=== PATIENT | female | born 1940 | race Caucasian/White ===

== ENCOUNTER → 2017-05-03 | Outpatient (CLI) | payer MEDICARE, BC ==
[~2017-05-03] MED LIST: ANTIVERT 25MG25 MG PO; ATIVAN0.5 MG PO; CALCIUM 600 + V1 TA1 PO; FLAX OIL1000 MG PO; FLONASE NASAL S16 GM NS; LUTEIN6 MG PO; MULTI VITAMINS1 TAB PO; PHENERGAN 25 TA25 MG PO; PRIL40 PO
== END ==
LOC: MC.RAD 10:00
DX: Z12.31 Encounter for screening mammogram for malignant neoplasm of breast (principal)

== ENCOUNTER → 2018-05-24 | Outpatient (CLI) | payer MEDICARE, BC | LOC: MC.RAD 08:56 | DX: Z12.31 Encounter for screening mammogram for malignant neoplasm of breast (principal) ==

== ENCOUNTER 2018-07-15 13:28 | Emergency (ER) | payer MEDICARE, BC ==
[2018-07-15 13:37] VITALS: TEMP 98
[2018-07-15 13:55] LABS: BASO # 0.1 (0.0-0.2); BASO % 0.8 % (0.0-2.0); EOS # 0.1 (0.0-0.7); EOS % 0.7 % (0-4.0); GRAN # 4.6 (1.4-6.5); GRAN % 63.9 % (42.2-75.2); HEMOGLOBIN 14.7 g/dl (12.5-16.0); LYMPH % 28.5 % (20.0-51.0); MEAN CELL VOLUME 93 fl (80.0-100.0); MEAN CORPUSCULAR HEMOGLOBIN 31 pg (27.0-31.0); MEAN CORPUSCULAR HGB CONC 33 g/dl (33.0-37.0); MEAN PLATELET VOLUME 10.5 fl (7.4-10.4); MONO # 0.4 (0.1-0.6); PLATELET COUNT 303 K/mm3 (130-400); RED BLOOD COUNT 4.75 M/mm3 (4.10-5.30)
[2018-07-15 14:03] LABS: ALANINE AMINOTRANSFERASE 17 U/L (9-52); ALBUMIN 4.7 gm/dL (3.5-5.0); ALKALINE PHOSPHATASE 101 U/L (50-136); ANION GAP 8 mmol/L (7-16); AST,SGOT 26 U/L (15-37); BILIRUBIN,TOTAL 0.5 mg/dL (0.0-1.0); BLOOD UREA NITROGEN 10 mg/dL (7-17); CALCIUM 9.8 mg/dL (8.4-10.2); CARBON DIOXIDE 27 mmol/L (22-30); CHLORIDE 106 mmol/L (98-107); CREATINE KINASE 59 U/L (30-135); GLUCOSE 115 mg/dL (74-106); LIPASE 123 U/L (23-300); POTASSIUM 3.8 mmol/L (3.4-5.0); SODIUM 141 mmol/L (137-145); TOTAL PROTEIN 7.7 gm/dL (6.4-8.2)
[2018-07-15 14:07] LABS: PROTHROMBIN TIME 11.9 SECONDS (9.7-12.8)
[2018-07-15 14:10] LABS: PARTIAL THROMBOPLASTIN TIME 39.5 SECONDS (26.0-37.0)
[2018-07-15 14:14] LABS: TROPONIN-I < 0.012 ng/mL (0.000-0.034)
[2018-07-15 16:18] VITALS: BP 133/71; PULSE 70
== END 2018-07-15 16:18 | disposition home or self-care (01) ==
LOC: COL.ER 13:28
PROVIDERS: Emergency Medicine
DX: K21.9 Gastro-esophageal reflux disease without esophagitis (principal); Z90.710 Acquired absence of both cervix and uterus

== ENCOUNTER 2018-08-21 17:18 | Emergency (ER) | payer MEDICARE, BC ==
[~2018-08-21] VITALS: Ht 170.2 cm; Wt 60.9 kg
[2018-08-21 17:24] VITALS: BP 180/77; TEMP 99.2
[2018-08-21 18:17] LABS: BASO % 0.4 % (0.0-2.0); EOS # 0.1 (0.0-0.7); EOS % 1.6 % (0-4.0); GRAN # 4.3 (1.4-6.5); GRAN % 62.7 % (42.2-75.2); HEMATOCRIT 42.1 % (37.0-47.0); HEMOGLOBIN 13.6 g/dl (12.5-16.0); LYMPH # 1.8 (1.2-3.4); LYMPH % 26.3 % (20.0-51.0); MEAN CELL VOLUME 95 fl (80.0-100.0); MEAN CORPUSCULAR HEMOGLOBIN 31 pg (27.0-31.0); MEAN CORPUSCULAR HGB CONC 32 g/dl (33.0-37.0); MEAN PLATELET VOLUME 10.2 fl (7.4-10.4); MONO # 0.6 (0.1-0.6); MONO % 8.7 % (1.7-9.3); PLATELET COUNT 295 K/mm3 (130-400); RED BLOOD COUNT 4.44 M/mm3 (4.10-5.30)
[2018-08-21 18:29] LABS: ALBUMIN 4.3 gm/dL (3.5-5.0); BILIRUBIN,TOTAL 0.2 mg/dL (0.0-1.0); CALCIUM 9.3 mg/dL (8.4-10.2); CREATININE, serum 0.77 mg/dL (0.52-1.25); POTASSIUM 3.4 mmol/L (3.4-5.0); TOTAL PROTEIN 7.3 gm/dL (6.4-8.2)
[2018-08-21] MEDS ORDERED: TESSALON P100 MG/CAP PO (19:21)
[2018-08-21 19:30] VITALS: PULSE 75
== END 2018-08-21 19:30 | disposition home or self-care (01) ==
LOC: COL.ER 17:18
PROVIDERS: Family Medicine
DX: R05 Cough (principal)
CPT/HCPCS: Q9967

== ENCOUNTER 2018-08-29 14:52 | Outpatient (RCR) | payer MEDICARE, BC ==
[~2018-08-29 14:52] MED LIST changes: +TESSALON P100 MG/CAP PO
== END 2018-11-27 | disposition home or self-care (01) ==
LOC: WSST
DX: K21.9 Gastro-esophageal reflux disease without esophagitis (principal); R05 Cough; K21.0 Gastro-esophageal reflux disease with esophagitis; R13.14 Dysphagia, pharyngoesophageal phase; J38.3 Other diseases of vocal cords; Z87.19 Personal history of other diseases of the digestive system

== ENCOUNTER → 2018-09-06 | Outpatient (CLI) | payer MEDICARE, BC | LOC: COL.RAD 09:25 | DX: K21.9 Gastro-esophageal reflux disease without esophagitis (principal); Z87.19 Personal history of other diseases of the digestive system ==

== ENCOUNTER → 2018-09-14 | Outpatient (CLI) | payer MEDICARE, BC | LOC: COL.RAD 12:47 | DX: D49.7 Neoplasm of unspecified behavior of endocrine glands and other parts of nervous system (principal); H61.892 Other specified disorders of left external ear; G31.9 Degenerative disease of nervous system, unspecified; I67.82 Cerebral ischemia | CPT/HCPCS: A9585 ==

== ENCOUNTER → 2019-06-13 | Outpatient (CLI) | payer MEDICARE, BC | LOC: MC.RAD 10:23 | DX: Z12.31 Encounter for screening mammogram for malignant neoplasm of breast (principal) ==

== ENCOUNTER → 2020-06-18 | Outpatient (CLI) | payer MEDICARE, BC | LOC: MC.RAD 09:39 | DX: Z12.31 Encounter for screening mammogram for malignant neoplasm of breast (principal) ==

== ENCOUNTER → 2021-07-01 | Outpatient (CLI) | payer MEDICARE, BC | LOC: MC.RAD 09:55 | DX: Z12.31 Encounter for screening mammogram for malignant neoplasm of breast (principal) ==

== ENCOUNTER 2024-06-09 18:52 | Inpatient (IN) | payer MEDICARE, BC ==
[~2024-06-09] VITALS: Ht 170.2 cm; Wt 68.4 kg
[~2024-06-09 18:52] MED LIST changes: +ADVIL200 MG PO; +BYSTOLIC2.5 MG PO; -CALCIUM 600 + V1 TA1 PO; +CALCIUM 600 PLU1 TAB PO; -FLAX OIL1000 MG PO; +FLAXSEED OIL1000 MG PO; +FLINTSTONES1 CTB PO; +FOSAMAX 35MG35 MG PO; +LUTEIN6 MG; -PRIL40 PO; +PRILOSEC 20MG20 MG PO; +TYLENOL 325MG325 MG PO
[2024-06-09] MEDS ORDERED: Ondansetron 4 MG/2 ML VIAL IV ONE (19:00)
[2024-06-09] MEDS ORDERED: LR 1,000 ML IV ONE ×3 (19:00→23:15)
[2024-06-09 19:37] LABS: BASO # 0.1 K/mm3 (0.0-0.2); BASO % 0.8 % (0.0-2.0); EOS # 0.1 K/mm3 (0.0-0.7); EOS % 1.8 % (0.0-4.0); GRAN # 3.5 K/mm3 (1.4-6.5); HEMATOCRIT 39.8 % (37.0-47.0); HEMOGLOBIN 12.8 g/dl (12.5-16.0); LYMPH # 1.9 K/mm3 (1.2-3.4); LYMPH % 31.5 % (20.0-51.0); MEAN CELL VOLUME 96 fl (80.0-100.0); MEAN CORPUSCULAR HEMOGLOBIN 31 pg (27-31); MEAN CORPUSCULAR HGB CONC 32 g/dl (33.0-37.0); MEAN PLATELET VOLUME 10.1 fl (7.4-10.4); MONO # 0.5 K/mm3 (0.1-0.6); MONO % 8.6 % (1.7-9.3); PLATELET COUNT 306 K/mm3 (130-400); RED BLOOD COUNT 4.14 M/mm3 (4.10-5.30); REDCELL DISTRIBUTION WIDTH-CV 12.7 % (11.5-14.5)
[2024-06-09 19:42] LABS: ALBUMIN 3.7 g/dL (3.4-4.8); C-REACTIVE PROTEIN 0.26 mg/dL (0.00-0.50); CALCIUM 8.7 mg/dL (8.4-10.2); CREATININE, serum 0.68 mg/dL (0.57-1.11); POTASSIUM 3.7 mEq/L (3.5-4.5); TOTAL PROTEIN 6.6 g/dl (6.2-8.1)
[2024-06-09 20:00] LABS: BILIRUBIN,TOTAL 0.3 mg/dL (0.2-1.2)
[2024-06-09 20:03] LABS: URINE APPEARANCE CLEAR (CLEAR/HAZY); URINE BLOOD 1+ (NEGATIVE); URINE COLOR YELLOW (YELLOW); URINE GLUCOSE NEGATIVE (NEGATIVE); URINE KETONE NEGATIVE (NEGATIVE); URINE NITRATE NEGATIVE (NEGATIVE); URINE PROTEIN(semi-quant) NEGATIVE (NEGATIVE); URINE UROBILINOGEN 0.2 E.U/dL (0.2-1.0)
[2024-06-09 20:11] LABS: COLLECTION METHOD CLEAN CATCH
[2024-06-09] MEDS ORDERED: Iohexol 300 - 100 ML VIAL IV ONE (20:25)
[2024-06-09] MEDS ORDERED: NS 50 ML IV ONE (20:26)
[2024-06-09] MEDS ORDERED: Ondansetron 4 MG/2 ML VIAL IV PRN (21:15)
[2024-06-09] MEDS ORDERED: Acetaminophen 500 MG TAB PO PRN (21:15)
[2024-06-09 22:35] VITALS: BP 138/55; PULSE 70; TEMP 98
--- NOTE | 2024-06-09 23:00 | NUR ---
PT ARRIVED TO ROOM 327 PER WC FROM ED @ 2235. TRANSFERRED TO BED INDEPENDENTLY, A&O X3, ON RA, VSS, AFEBRILE. NO REPORTED NAUSEA OR PAIN AT THIS TIME, IN REPORT FROM ED RN, WAS INFORMED PT HAD IVF INFUSING, BUT CURRENTLY NOT PRESENT, CALLED ISAAC RN IN ED, WAS TOLD IVF HAD BEEN DISCONNECTED TO TRANSPORT PT AND BAG HAD BEEN ACCIDENTLY THROWN AWAY, NEW BAG ORDERED AND HUNG @ 150 CC/HR IN PIV IN LFA. PT ORIENTED TO ROOM, FLOOR AND POC, QUESTIONS ANSWERED, ADMISSION ASSESSMENT, INTAKE AND MED REC COMPLETED.
[2024-06-09 23:59] VITALS: BP 128/75; PULSE 60; TEMP 97.7
[2024-06-10] VITALS (13 sets, daily range): BP systolic 105–144; BP diastolic 44–72; PULSE 64–78; TEMP 97.8–98.4
[2024-06-10 05:43] LABS: BASO % 0.5 % (0.0-2.0); EOS # 0.1 K/mm3 (0.0-0.7); EOS % 1.4 % (0.0-4.0); GRAN # 5.5 K/mm3 (1.4-6.5); GRAN % 70.9 % (42.2-75.2); HEMOGLOBIN 11.3 g/dl (12.5-16.0); LYMPH # 1.4 K/mm3 (1.2-3.4); LYMPH % 17.7 % (20.0-51.0); MEAN CELL VOLUME 92 fl (80.0-100.0); MEAN CORPUSCULAR HEMOGLOBIN 31 pg (27-31); MEAN CORPUSCULAR HGB CONC 34 g/dl (33.0-37.0); MEAN PLATELET VOLUME 10.7 fl (7.4-10.4); MONO # 0.7 K/mm3 (0.1-0.6); MONO % 9.1 % (1.7-9.3); PLATELET COUNT 267 K/mm3 (130-400); RED BLOOD COUNT 3.64 M/mm3 (4.10-5.30); REDCELL DISTRIBUTION WIDTH-CV 12.9 % (11.5-14.5)
[2024-06-10] MEDS ORDERED: LR 1,000 ML IV SCH (05:45)
[2024-06-10 05:49] LABS: HEMATOCRIT 33.5 % (37.0-47.0)
--- NOTE | 2024-06-10 05:49 | NUR ---
PT HAS HAD SEVERAL MORE EPISODES OF PASSING BRIGHT RED BLOOD FROM RECTUM, NO FECES PRESENT, AWAITING DR HALEY CONSULT VISIT, REPORTED NAUSEA X1, ZOFRAN GIVEN WITH RELIEF, TAKING SMALL AMTS OF CLEARS, IVF INFUSING @ 75 CC/HR NOW. UP TO RESTROOM WITH SBA ASSIST TO HELP WITH IV POLE.
[2024-06-10 06:01] LABS: CREATININE, serum 0.61 mg/dL (0.57-1.11); POTASSIUM 4.2 mEq/L (3.5-4.5)
--- NOTE | 2024-06-10 07:09 | NUR ---
REPORT RECEIVED. PATIENT SLEEPING ON ARRIVAL, PATIENT WAKES EASY STATES NO NEEDS AT THIS TIME. CALL LIGHT IN REACH
[2024-06-10] MEDS ORDERED: Multivitamin TAB PO SCH (09:00)
[2024-06-10] MEDS ORDERED: Bisoprolol 5 MG TAB PO SCH (09:00)
[2024-06-10] MEDS ORDERED: [UNRECOGNIZED DRUG - REMARK] PO SCH (09:00)
--- NOTE | 2024-06-10 09:08 | NUR ---
PATIENT CALLED THIS NURSE IN TO BATHROOM WHERE SHE HAD A INCONT. EPISODE OF A BLOODY BM IN HER BREIF. THIS WAS A LARGE BM AND WAS BLOODY. HAD CHARGE NURSE LOOK AT BM WELL AND WAS ADVISED TO CONTACT ROSA HYDE TO UPDATE. CONTACTED MARY ELLEN AND UPDATED ON RECENT BM APPEARANCE. SHE WILL PUT IN ORDER FOR LABS FOR THIS AFTERNOON TO TRACK HGB.
--- NOTE | 2024-06-10 09:45 | NUR ---
SHIFT ASSESSMENT COMPLETE. VSS. PATIENT IN BTHROOM UPON ARRIVAL TO ROOM THEN ABULATED TO BED SBA. PATIENT STATES NO PAIN AT THIS TIME. PATIENT SAYS SHE HAD SOME NAUSEA LAST NIGHT BUT REPORTS NO N/V, DIZZINESS, OR LIGHT HEADEDNESS. ALL MORNING MEDS GIVEN ORDERED. CALL LIGHT IN REACH
[2024-06-10] MEDS ORDERED: Pantoprazole 40 MG in NS 10 ML IV SCH (09:53)
[2024-06-10] MEDS ORDERED: cefTRIAXone 1 G in Water For Injection,Sterile 10 ML IV SCH (11:45)
--- NOTE | 2024-06-10 12:38 | NUR ---
Data: Patient accepted spiritual care visit offered during Exterior Designer rounds. Patient and live at [facility]. Patient is worried about him and about how she would get home. POLICY ISSUE CLERK Marisol arrived during this visit. Exterior Designer invited POLICY ISSUE CLERK into the visit so that Patient could discuss her concerns with the POLICY ISSUE CLERK. Assessment: Patient is tearful. While still slightly tearful at end of visit, Patient did state that she was feeling more relieved about some of her concerns. Plan of Care: Exterior Designer offered supportive listening and prayer. Chaplains will remain available as needed/requested while Patient is admitted to this hospital.
[2024-06-10 13:49] LABS: HEMOGLOBIN 11.5 g/dl (12.5-16.0)
[2024-06-10 13:53] LABS: HEMATOCRIT 34.1 % (37.0-47.0)
--- NOTE | 2024-06-10 13:57 | NUR ---
social worker masters met with patient in room to complete intake and discuss discharge planning. Washery Boss was also at bedside. Patient stated that she lives in a [place] apartment with her , Juan. Patient stated that her PCP is Dr. Perez and her pharmacy of choice is [facility]. Patient reported that she is independent in her ADLs but that she needs transportation assistance. Patient also reported that she uses hearing aids. Patient reported some concerns regarding discharge and stated that she may need assistance or to have a ride arranged home. social worker masters to follow. D/C: Home
[2024-06-11 00:32] VITALS: BP_SYST 111
[2024-06-11 03:29] VITALS: BP 127/74; PULSE 79; TEMP 98.2
[2024-06-11 03:36] VITALS: BP_SYST 127
[2024-06-11 06:25] LABS: BASO # 0.1 K/mm3 (0.0-0.2); BASO % 0.9 % (0.0-2.0); EOS # 0.2 K/mm3 (0.0-0.7); GRAN # 4.2 K/mm3 (1.4-6.5); GRAN % 59.1 % (42.2-75.2); HEMOGLOBIN 10.7 g/dl (12.5-16.0); LYMPH # 1.9 K/mm3 (1.2-3.4); LYMPH % 26.9 % (20.0-51.0); MEAN CELL VOLUME 93 fl (80.0-100.0); MEAN CORPUSCULAR HEMOGLOBIN 31 pg (27-31); MEAN CORPUSCULAR HGB CONC 33 g/dl (33.0-37.0); MEAN PLATELET VOLUME 10.4 fl (7.4-10.4); MONO # 0.7 K/mm3 (0.1-0.6); MONO % 9.8 % (1.7-9.3); PLATELET COUNT 279 K/mm3 (130-400); RED BLOOD COUNT 3.49 M/mm3 (4.10-5.30); REDCELL DISTRIBUTION WIDTH-CV 13.2 % (11.5-14.5)
[2024-06-11 06:30] LABS: HEMATOCRIT 32.3 % (37.0-47.0)
[2024-06-11 06:42] LABS: CALCIUM 7.9 mg/dL (8.4-10.2); CREATININE, serum 0.64 mg/dL (0.57-1.11); POTASSIUM 3.8 mEq/L (3.5-4.5)
[2024-06-11 07:48] VITALS: BP 123/65; PULSE 64; TEMP 97.7
[2024-06-11 09:00] VITALS: BP_SYST 123
--- NOTE | 2024-06-11 09:36 | NUR ---
PATIENT ALERT AND ORIENTED X4. VSS. PATIENT HERE FOR DIVERTICULAR BLEED. PATIENT DENIES ANY BLOODY STOOLS LASTNIGHT AND THIS MORNING. AM MEDS ADMINISTERED. IV TO LEFT FA INT AND FLUSHES WELL. NO FURTHER NEEDS. CALL LIGHT IN REACH.
--- NOTE | 2024-06-11 10:48 | NUR ---
DISCHARGE INSTRUCTIONS PROVIDED. PATIENT EDUCATION GIVEN. IV DC'D. FOLLOW UP APPOINTMENTS DISCUSSED. MEDICATIONS REVIEWED. PATIENT DENIES ANY QUESTIONS RO CONCERNS. PATIENT ESCORTED OUT WITH BELONGINGS VIA WHEELCHAIR.
== END 2024-06-11 10:48 | disposition home or self-care (01) | DRG 378 ==
LOC: COL.ER 18:52 → SURG 22:18
PROVIDERS: Family Medicine; Physician Assistant; ADMIT Internal Medicine
DX: K57.91 Diverticulosis of intestine, part unspecified, without perforation or abscess with bleeding (principal); D62 Acute posthemorrhagic anemia; N39.0 Urinary tract infection, site not specified; B95.8 Unspecified staphylococcus as the cause of diseases classified elsewhere; I10 Essential (primary) hypertension; K21.9 Gastro-esophageal reflux disease without esophagitis
CPT/HCPCS: J0696; J2405; J2470; J7120; Q9967